=== PATIENT | female | born 1975 | race African-American/Black ===

== ENCOUNTER → 2016-07-26 | Outpatient (CLI) | payer SELFPAY ==
--- NOTE | 2016-07-26 13:28 | KCIC ---
Two view chest Indication: Shortness of air. History of pleural effusion Findings: The heart size is normal. Pulmonary vasculature is within normal limits. There is no pleural effusion, consolidating infiltrate, or pneumothorax. Impression: No acute disease of the chest. Electronically signed by: Henry Richardson MD (07/26/2016 1:24 PM)
== END | disposition home or self-care (01) ==
LOC: KCIC 12:43
DX: R06.02 Shortness of breath (principal)
CPT/HCPCS: 71020